=== PATIENT | male | born 1985 | race Caucasian/White ===

== ENCOUNTER 2018-05-01 08:12 | Inpatient (IN) | payer MEDICARE ==
[2018-05-01 08:51] LABS: Bilirubin Negative (Negative); Blood, Urine Negative (Negative); Clarity CLEAR (Clear); Glucose, Urine (Dipstick) >=1000 mg/dL (Negative); Leukocyte Negative (Negative); Nitrite Negative (Negative); Protein, Urine (Dipstick) Negative (Neg-Trace); Specific Gravity, Urine 1.033 (1.002-1.036); Urobilinogen 0.2 mg/dL (0.2-1.0)
[2018-05-01 09:02] LABS: #Lymphocytes 1.2 thou/uL (1.20-3.40); #Monocytes 0.4 thou/uL (0.11-0.59); #Neutrophils 6.2 thou/uL (1.40-6.50); %Eosinophils 0.3 % (0.0-10.0); %Lymphocytes 15.4 % (21.0-51.0); %Monocytes 4.7 % (0.0-10.0); %Neutrophils 79.6 % (42.0-75.0); Hemoglobin 15.6 g/dL (14.0-18.0); Mean Corpuscular HGB CONC 34.6 g/dL (32.0-36.0); Mean Corpuscular Hemoglobin 31.7 pg (27.0-31.0); Mean Corpuscular Volume 91.4 fL (78.0-98.0); Mean Platelet Volume 5.8 fL (7.4-10.4); Platelet Count 263 thou/uL (130-400); RBC Distribution Width 12.1 % (11.5-14.5); Red Blood Cell (RBC) Count 4.93 mill/uL (4.70-6.10); White Blood Cell (WBC) Count 7.8 thou/uL (4.8-10.8)
[2018-05-01] MEDS ORDERED: Ondansetron ODT 4 MG TAB ONE (09:02)
[2018-05-01 09:30] LABS: ALT (SGPT) 31 U/L (8-55); AST (SGOT) 51 U/L (5-34); Albumin 4.5 g/dL (3.5-5.0); Alkaline Phosphatase 96 U/L (40-150); Anion Gap 26 mmol/L (10-20); BUN (Urea Nitrogen) 19 mg/dL (8.9-20.6); Calc. Creatinine Clearance 0 mL/min (70-130); Calcium 9.2 mg/dL (7.8-10.44); Carbon Dioxide 18 mmol/L (22-29); Chloride 96 mmol/L (98-107); Estimated GFR-MDRD 53; Globulin 2.4 g/dL (2.4-3.5); Potassium 5.3 mmol/L (3.5-5.1); Protein, Total 6.9 g/dL (6.0-8.3); Sodium 135 mmol/L (136-145); Troponin I Less than 0.010 ng/mL (< 0.028)
[2018-05-01 09:40] LABS: CKMB 10.8 ng/mL (0-6.6); Glucose 616 mg/dL (70-105)
[2018-05-01] MEDS ORDERED: Insulin Regular 300 UNITS/3 ML VIAL ONE ×2 (09:48→09:51)
[2018-05-01 13:15] LABS: Anion Gap 22 mmol/L (10-20); BUN (Urea Nitrogen) 17 mg/dL (8.9-20.6); Calc. Creatinine Clearance 0 mL/min (70-130); Calcium 9.1 mg/dL (7.8-10.44); Carbon Dioxide 19 mmol/L (22-29); Chloride 101 mmol/L (98-107); Estimated GFR-MDRD 65; Glucose 454 mg/dL (70-105); Sodium 137 mmol/L (136-145)
[2018-05-01] MEDS ORDERED: Dextrose 5% in Water 1,000 ML IV PRN (13:29)
[2018-05-01] MEDS ORDERED: Insulin Glargine 35 UNITS in Pre-Filled Syringe 1 EACH SC SCH (13:45)
--- NOTE | 2018-05-01 15:06 | HP ---
CHIEF COMPLAINT: Nausea and vomiting. HISTORY OF PRESENT ILLNESS: The patient is a very pleasant 33-year-old male with a history of type 1 diabetes who presents to the hospital with nausea and vomiting x1 day. The patient states that he j bernice recently moved here, ran out of his Lantus for the past 2 days. Patient states that he has his s hort acting Humalog at home; however, has been taking it for the past couple of days, but when he wok e up this morning, his blood sugar was noted to be in the 400s. He tried to administer the short-act ing insulin; however, his nausea and vomiting worsened, so he came into the ER for further evaluation . The patient denies any fevers, chills, any abdominal pain, any coughs or chest pain or shortness o f breath or any URI-like symptoms. Patient states that he just moved and ran out of his medications. PAST MEDICAL HISTORY: Diabetes and patient has a history of bipolar disorder. PAST SURGICAL HISTORY: He has had an appendectomy. ALLERGIES: He has got no known drug allergies. MEDICATIONS: Lisinopril 2.5 mg daily, pravastatin 20 mg daily. He takes 35 units of Lantus in the m orning and Humalog based on his meals. He also takes risperidone 1 mg daily and Geodon 80 mg b.i.d. FAMILY HISTORY: Significant for heart disease. Father had diabetes. SOCIAL HISTORY: As mentioned. No known drug allergies. REVIEW OF SYSTEMS: All negative except for the ones mentioned above in the HPI. PHYSICAL EXAMINATION: VITAL SIGNS: He is afebrile at 98.8, 80, 16, respirations 140/60. GENERAL: He is awake, alert, oriented x3, does not appear in distress. HEENT: Normocephalic, atraumatic. NECK: No lymphadenopathy noted. LUNGS: Clear to auscultation, rhonchi or wheezes noted. CARDIOVASCULAR: S1, S2 present. No murmurs, rubs or gallops. ABDOMEN: Soft, nontender. Bowel sounds are present x2 SKIN: He has got significant amount of tattooing all over. EXTREMITIES: No edema. Pedal pulses are present x2. He has no neurological deficits noted. No foc al deficits noted. LABORATORY DATA: Are as of the following; his WBCs of 7.8, hemoglobin of 15.6, hematocrit 45.1, plat elets of 268. Chemistry initially was sodium of 135, potassium of 5.3, bicarb of 18, anion gap of 26 , creatinine 1.50, sugar was 616 with a beta hydroxybutyric 5.02. ASSESSMENT AND PLAN: The patient is a very pleasant 33-year-old male who presents to the hospital wi th nausea and vomiting. 1. Diabetic ketoacidosis. The patient ran out of his insulin. The patient was given 5 units of reg ular insulin IV in the ER and was not started on a heparin drip. He was given 2 liters of normal kimberli ine. His sugar upon my arrival was 426 and repeated BMP which indicated anion gap of 22 from 26. At this time, we will give patient 35 units of his Lantus and start him on some gentle hydration and ad ann him to the medical floor. We will continue to monitor the BMP. If his gap continues to worsen, he may be transferred to [facility] for an insulin drip. 2. Anion gap metabolic acidosis, most likely secondary from his DKA. 3. Acute kidney injury. Patient's creatinine has improved after hydration. 4. Deep venous thrombosis prophylaxis. We will put patient on subcu heparin.
[2018-05-01 15:11] VITALS: BMI 28.9
[2018-05-01] MEDS: Sodium Chloride 0.9% 1,000 ML IV SCH (16:05)
[2018-05-01] MEDS: Heparin 5,000 UNITS/ML VIAL SC SCH ×2 (16:05→21:06)
[2018-05-01] MEDS: HumaLOG 300 UNITS/3 ML VIAL SC PRN ×2 (18:11→21:07)
[2018-05-01 18:12] LABS: Anion Gap 21 mmol/L (10-20); BUN (Urea Nitrogen) 15 mg/dL (8.9-20.6); Calc. Creatinine Clearance 114 mL/min (70-130); Carbon Dioxide 20 mmol/L (22-29); Chloride 100 mmol/L (98-107); Estimated GFR-MDRD 62; Glucose 318 mg/dL (70-105); Potassium 4.9 mmol/L (3.5-5.1); Sodium 136 mmol/L (136-145)
[2018-05-01] MEDS: Acetaminophen 325 MG TAB PO PRN (18:12)
[2018-05-01] MEDS ORDERED: Famotidine/PF 20 mg/2ml Vial SLOW IVP SCH (21:00)
[2018-05-01] MEDS ORDERED: Ziprasidone 60 MG CAP PO SCH (21:00)
[2018-05-01] MEDS: Ziprasidone 20 MG CAP PO SCH (21:05)
[2018-05-01] MEDS: Pravastatin Sodium 20 MG TAB PO SCH (21:06)
[2018-05-01] MEDS: Ondansetron HCl/PF 4 MG/2 ML Vial IVP PRN (21:06)
[2018-05-01] MEDS: Famotidine 20 MG TAB PO SCH (23:11)
[2018-05-02] MEDS: Sodium Chloride 0.9% 1,000 ML IV SCH ×3 (02:23→21:38)
[2018-05-02 04:54] LABS: #Eosinphils 0.1 thou/uL (0.0-0.7); #Lymphocytes 2.4 thou/uL (1.20-3.40); #Monocytes 0.6 thou/uL (0.11-0.59); #Neutrophils 2.8 thou/uL (1.40-6.50); %Basophils 0.4 % (0.0-1.0); %Eosinophils 2.4 % (0.0-10.0); %Lymphocytes 40.9 % (21.0-51.0); %Monocytes 9.7 % (0.0-10.0); %Neutrophils 46.5 % (42.0-75.0); Hemoglobin 13.4 g/dL (14.0-18.0); Mean Corpuscular HGB CONC 33.7 g/dL (32.0-36.0); Mean Corpuscular Hemoglobin 30.8 pg (27.0-31.0); Mean Corpuscular Volume 91.3 fL (78.0-98.0); Mean Platelet Volume 5.8 fL (7.4-10.4); Platelet Count 235 thou/uL (130-400); Red Blood Cell (RBC) Count 4.36 mill/uL (4.70-6.10); White Blood Cell (WBC) Count 5.9 thou/uL (4.8-10.8)
[2018-05-02 05:11] LABS: Anion Gap 16 mmol/L (10-20); BUN (Urea Nitrogen) 11 mg/dL (8.9-20.6); Calc. Creatinine Clearance 174 mL/min (70-130); Calcium 8.7 mg/dL (7.8-10.44); Carbon Dioxide 22 mmol/L (22-29); Chloride 106 mmol/L (98-107); Estimated GFR-MDRD Greater than 90; Glucose 108 mg/dL (70-105); Potassium 3.7 mmol/L (3.5-5.1); Sodium 140 mmol/L (136-145)
[2018-05-02] MEDS: Ondansetron HCl/PF 4 MG/2 ML Vial IVP PRN ×2 (09:07→16:02)
[2018-05-02] MEDS: Heparin 5,000 UNITS/ML VIAL SC SCH ×3 (09:09→20:11)
[2018-05-02] MEDS: Famotidine 20 MG TAB PO SCH ×2 (09:09→20:11)
[2018-05-02] MEDS: risperiDONE 1 MG TAB PO SCH (09:09)
[2018-05-02] MEDS: Lisinopril 2.5 MG TAB PO SCH (09:09)
[2018-05-02] MEDS: Ziprasidone 20 MG CAP PO SCH ×2 (09:09→20:10)
[2018-05-02] MEDS: Insulin Glargine 35 UNITS in Pre-Filled Syringe 1 EACH SC SCH (09:10)
[2018-05-02] MEDS: HumaLOG 300 UNITS/3 ML VIAL SC PRN (11:36)
[2018-05-02 12:41] LABS: ALT (SGPT) 25 U/L (8-55); AST (SGOT) 23 U/L (5-34); Albumin 3.7 g/dL (3.5-5.0); Alkaline Phosphatase 82 U/L (40-150); Bilirubin, Direct 0.3 mg/dL (0.1-0.3); Bilirubin, Total 0.7 mg/dL (0.2-1.2)
--- NOTE | 2018-05-02 17:15 | PDOC.PN ---
- Objective Resuscitation Status: Resuscitation Status FULL:Full Resuscitation Vital Signs & Weight: Vital Signs (12 hours) Temp Pulse Resp BP Pulse Ox 05/02/18 15:47 98.6 F 88 16 124/74 97 05/02/18 12:01 98.3 F 83 16 108/61 92 L 05/02/18 09:10 98 F 94 15 05/02/18 09:09 94 05/02/18 07:53 98 F 94 15 118/63 93 L Weight Weight 225 lb 9.6 oz I&O: 05/01/18 05/02/18 05/03/18 06:59 06:59 06:59 Intake Total 2441 4 Output Total 400 Balance 2041 4 Result Diagrams: 05/02/18 04:37 05/02/18 04:37 Additional Labs: Accuchecks 05/02/18 05/02/18 05/02/18 16:43 10:53 05:14 POC Glucose 147 H 288 H 109 05/01/18 05/01/18 05/01/18 21:06 18:12 17:14 POC Glucose 154 H 282 H 287 H Dx/Plan - Plan * .
[2018-05-02] MEDS: Pravastatin Sodium 20 MG TAB PO SCH (20:11)
--- NOTE | 2018-05-02 21:11 | PDOC.PN ---
- Subjective Encounter Start Date: 05/02/18 Encounter Start Time: 10:30 Subjective: pt was nauseated today - Objective Resuscitation Status: Resuscitation Status FULL:Full Resuscitation Vital Signs & Weight: Vital Signs (12 hours) Temp Pulse Resp BP Pulse Ox 05/02/18 19:37 98.2 F 85 20 118/68 93 L 05/02/18 15:47 98.6 F 88 16 124/74 97 05/02/18 12:01 98.3 F 83 16 108/61 92 L Weight Weight 225 lb 9.6 oz I&O: 05/01/18 05/02/18 05/03/18 06:59 06:59 06:59 Intake Total 2441 1785 Output Total 400 1800 Balance 2040 Result Diagrams: 05/02/18 04:37 05/02/18 04:37 Additional Labs: Accuchecks 05/02/18 05/02/18 05/02/18 20:42 16:43 10:53 POC Glucose 128 H 147 H 288 H 05/02/18 05/01/18 05:14 21:06 POC Glucose 109 154 H Phys Exam - Physical Examination HEENT: PERRLA, moist MMs, sclera anicteric, TM's clear, oral pharynx no lesions , 2+ tonsils Neck: no nodes, no JVD, supple, full ROM Respiratory: no wheezing, no rales, no rhonchi, wheezing present, clear to auscultation bilateral Cardiovascular: RRR, no significant murmur, no rub, gallop, irregular Gastrointestinal: soft, non-tender, no distention, positive bowel sounds Dx/Plan (1) DKA (diabetic ketoacidoses) Code(s): E13.10 - OTH DIABETES MELLITUS WITH KETOACIDOSIS WITHOUT COMA Status : Acute (2) DM type 1 (diabetes mellitus, type 1) Status: Acute (3) Gastroparesis Code(s): K31.84 - GASTROPARESIS Status: Acute - Plan Pt's gap closed and blood sugars are good. -: pt has gastroparesis will put on regaln -: possible discharge in am * . Review of Systems - Review of Systems ENT: negative: Ear Pain, Ear Discharge, Nose Pain, Nose Discharge, Nose Congestion, Mouth Pain, Mouth Swelling, Throat Pain, Throat Swelling, Other Respiratory: negative: Cough, Dry, Shortness of Breath, Hemoptysis, SOB with Excertion, Pleuritic Pain, Sputum, Wheezing Gastrointestinal: Nausea, Vomiting Genitourinary: negative: Dysuria, Frequency, Incontinence, Hematuria, Retention , Other Musculoskeletal: negative: Neck Pain, Shoulder Pain, Arm Pain, Back Pain, Hand Pain, Leg Pain, Foot Pain, Other - Medications/Allergies Allergies/Adverse Reactions: Allergies Allergy/AdvReac Type Severity Reaction Status Date / Time No Known Drug Allergies Allergy Verified 05/01/18 15:48 onion Allergy Verified 05/01/18 16:16 Medications: Current Medications Acetaminophen (Tylenol) 650 mg PO Q4H PRN PRN Reason: Headache/Fever or Pain Last Admin: 05/01/18 18:12 Dose: 650 mg Dextrose/Water (Dextrose 50%) 25 gm SLOW IVP PRN PRN PRN Reason: Hypoglycemia Famotidine (Pepcid) 20 mg PO BID [facility] Last Admin: 05/02/18 20:11 Dose: 20 mg Glucagon (Glucagon) 1 mg IM PRN PRN PRN Reason: Hypoglycemia Heparin Sodium (Porcine) (Heparin) 5,000 units SC TID [facility] Last Admin: 05/02/18 20:11 Dose: 5,000 units Insulin Glargine 35 units/ (Miscellaneous Medication) 0.35 mls @ 0 mls/hr SC QAM [facility] Last Admin: 05/02/18 09:10 Dose: 0.35 mls Dextrose/Water (D5w) 1,000 mls @ 0 mls/hr IV .Q0M PRN; As Directed PRN Reason: Hypoglycemia Sodium Chloride (Normal Saline 0.9%) 1,000 mls @ 100 mls/hr IV .Q10H [facility] Last Admin: 05/02/18 12:28 Dose: 1,000 mls Insulin Human Lispro (Humalog) 0 units SC .MODERATE SLIDING SC PRN PRN Reason: Moderate Correctional Scale Last Admin: 05/02/18 11:36 Dose: 6 unit Lisinopril (Zestril) 2.5 mg PO DAILY [facility] Last Admin: 05/02/18 09:09 Dose: 2.5 mg Ondansetron HCl (Zofran) 4 mg IVP Q6H PRN PRN Reason: Nausea/Vomiting Last Admin: 05/02/18 16:02 Dose: 4 mg Pravastatin Sodium (Pravachol) 20 mg PO HS [facility] Last Admin: 05/02/18 20:11 Dose: 20 mg Risperidone (Risperidone) 1 mg PO DAILY [facility] Last Admin: 05/02/18 09:09 Dose: 1 mg Sodium Chloride (Flush - Normal Saline) 10 ml IVF Q12HR [facility] Last Admin: 05/02/18 09:10 Dose: 10 ml Sodium Chloride (Flush - Normal Saline) 10 ml IVF PRN PRN PRN Reason: Saline Flush Ziprasidone (Geodon) 80 mg PO BID [facility] Last Admin: 05/02/18 20:10 Dose: 80 mg
[2018-05-02] MEDS ORDERED: Metoclopramide HCl 10 MG/2 ML VIAL IVP SCH (21:30)
[2018-05-03 05:02] LABS: #Eosinphils 0.1 thou/uL (0.0-0.7); #Lymphocytes 2.1 thou/uL (1.20-3.40); #Monocytes 0.4 thou/uL (0.11-0.59); #Neutrophils 2.3 thou/uL (1.40-6.50); %Basophils 0.7 % (0.0-1.0); %Eosinophils 2.4 % (0.0-10.0); %Lymphocytes 42.4 % (21.0-51.0); %Monocytes 8.5 % (0.0-10.0); Hemoglobin 13.5 g/dL (14.0-18.0); Mean Corpuscular HGB CONC 35.1 g/dL (32.0-36.0); Mean Corpuscular Volume 91.3 fL (78.0-98.0); Mean Platelet Volume 5.4 fL (7.4-10.4); Platelet Count 210 thou/uL (130-400); RBC Distribution Width 11.9 % (11.5-14.5); Red Blood Cell (RBC) Count 4.23 mill/uL (4.70-6.10)
[2018-05-03 05:15] LABS: Anion Gap 12 mmol/L (10-20); BUN (Urea Nitrogen) 6 mg/dL (8.9-20.6); Calc. Creatinine Clearance 195 mL/min (70-130); Calcium 8.5 mg/dL (7.8-10.44); Carbon Dioxide 24 mmol/L (22-29); Chloride 108 mmol/L (98-107); Estimated GFR-MDRD Greater than 90; Glucose 93 mg/dL (70-105); Potassium 3.2 mmol/L (3.5-5.1); Sodium 141 mmol/L (136-145)
[2018-05-03] MEDS: Metoclopramide HCl 10 MG/2 ML VIAL IVP SCH ×2 (05:26→14:24)
[2018-05-03] MEDS: Sodium Chloride 0.9% 1,000 ML IV SCH ×2 (07:46→18:19)
[2018-05-03] MEDS: Heparin 5,000 UNITS/ML VIAL SC SCH ×3 (09:48→20:30)
[2018-05-03] MEDS: Famotidine 20 MG TAB PO SCH ×2 (09:48→20:30)
[2018-05-03] MEDS: risperiDONE 1 MG TAB PO SCH (09:49)
[2018-05-03] MEDS: Lisinopril 2.5 MG TAB PO SCH (09:49)
[2018-05-03] MEDS: Insulin Glargine 35 UNITS in Pre-Filled Syringe 1 EACH SC SCH (09:49)
[2018-05-03] MEDS: Ziprasidone 20 MG CAP PO SCH ×2 (09:50→20:29)
[2018-05-03] MEDS: Ondansetron HCl/PF 4 MG/2 ML Vial IVP PRN (09:50)
[2018-05-03] MEDS: HumaLOG 300 UNITS/3 ML VIAL SC PRN (12:15)
--- NOTE | 2018-05-03 17:13 | PDOC.PN ---
- Subjective Encounter Start Date: 05/03/18 Encounter Start Time: 15:00 Patient is seen today, Alert and oriented, Persistant nausea and vomiting, No respondse to Reglan. pt says he is better with phenergan. - Objective Resuscitation Status: Resuscitation Status FULL:Full Resuscitation MAR Reviewed: Yes Vital Signs & Weight: Vital Signs (12 hours) Temp Pulse Resp BP BP Pulse Ox 05/03/18 16:05 97.8 F 78 16 112/59 L 92 L 05/03/18 11:08 98.6 F 84 16 117/67 96 05/03/18 09:49 90 122/71 05/03/18 07:58 98.0 F 90 16 122/71 94 L 05/03/18 07:45 98.0 F 90 16 Weight Weight 226 lb 9.6 oz I&O: 05/02/18 05/03/18 05/04/18 06:59 06:59 06:59 Intake Total 2441 3401 630 Output Total 400 3125 300 Balance 2041 276 330 Result Diagrams: 05/03/18 04:44 05/03/18 04:44 Additional Labs: Accuchecks 05/03/18 05/02/18 11:13 20:42 POC Glucose 163 H 128 H Radiology Reviewed by me: Yes Phys Exam - Physical Examination HEENT: PERRLA, moist MMs Neck: no nodes, no JVD Respiratory: no wheezing, no rales Cardiovascular: RRR, no significant murmur Gastrointestinal: soft, non-tender Musculoskeletal: no edema, pulses present Neurological: non-focal, normal sensation Dx/Plan (1) Severe dehydration Code(s): E86.0 - DEHYDRATION Status: Acute Comment: Will continue with Iv fluids. Pt has persistant vomitings. (2) DKA (diabetic ketoacidoses) Code(s): E13.10 - OTH DIABETES MELLITUS WITH KETOACIDOSIS WITHOUT COMA Status : Resolved (3) DM type 1 (diabetes mellitus, type 1) Status: Acute Comment: Well controlled, Continue on Lantus and and SSI. (4) Gastroparesis Code(s): K31.84 - GASTROPARESIS Status: Acute Comment: Will try phenergan, as pt did not respond to Reglan. 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 Review of Systems - Review of Systems Constitutional: negative: fever, chills, sweats, weakness, malaise, other Eyes: negative: Pain, Vision Change, Conjunctivae Inflammation, Eyelid Inflammation, Redness, Other ENT: negative: Ear Pain, Ear Discharge, Nose Pain, Nose Discharge, Nose Congestion, Mouth Pain, Mouth Swelling, Throat Pain, Throat Swelling, Other Respiratory: negative: Cough, Dry, Shortness of Breath, Hemoptysis, SOB with Excertion, Pleuritic Pain, Sputum, Wheezing Cardiovascular: negative: chest pain, palpitations, orthopnea, paroxysmal nocturnal dyspnea, edema, light headedness, other Gastrointestinal: Nausea, Vomiting Genitourinary: negative: Dysuria, Frequency, Incontinence, Hematuria, Retention , Other Musculoskeletal: negative: Neck Pain, Shoulder Pain, Arm Pain, Back Pain, Hand Pain, Leg Pain, Foot Pain, Other Skin: negative: Rash, Lesions, Mario, Bruising, Other - Medications/Allergies Allergies/Adverse Reactions: Allergies Allergy/AdvReac Type Severity Reaction Status Date / Time No Known Drug Allergies Allergy Verified 05/01/18 15:48 onion Allergy Verified 05/01/18 16:16 Medications: Current Medications Acetaminophen (Tylenol) 650 mg PO Q4H PRN PRN Reason: Headache/Fever or Pain Last Admin: 05/01/18 18:12 Dose: 650 mg Dextrose/Water (Dextrose 50%) 25 gm SLOW IVP PRN PRN PRN Reason: Hypoglycemia Famotidine (Pepcid) 20 mg PO BID [facility] Last Admin: 05/03/18 09:48 Dose: 20 mg Glucagon (Glucagon) 1 mg IM PRN PRN PRN Reason: Hypoglycemia Heparin Sodium (Porcine) (Heparin) 5,000 units SC TID [facility] Last Admin: 05/03/18 14:24 Dose: 5,000 units Insulin Glargine 35 units/ (Miscellaneous Medication) 0.35 mls @ 0 mls/hr SC QAM [facility] Last Admin: 05/03/18 09:49 Dose: 0.35 mls Dextrose/Water (D5w) 1,000 mls @ 0 mls/hr IV .Q0M PRN; As Directed PRN Reason: Hypoglycemia Sodium Chloride (Normal Saline 0.9%) 1,000 mls @ 100 mls/hr IV .Q10H [facility] Last Admin: 05/03/18 07:46 Dose: 1,000 mls Insulin Human Lispro (Humalog) 0 units SC .MODERATE SLIDING SC PRN PRN Reason: Moderate Correctional Scale Last Admin: 05/03/18 12:15 Dose: 2 unit Lisinopril (Zestril) 2.5 mg PO DAILY [facility] Last Admin: 05/03/18 09:49 Dose: 2.5 mg Ondansetron HCl (Zofran) 4 mg IVP Q6H PRN PRN Reason: Nausea/Vomiting Last Admin: 05/03/18 09:50 Dose: 4 mg Pravastatin Sodium (Pravachol) 20 mg PO HS [facility] Last Admin: 05/02/18 20:11 Dose: 20 mg Promethazine HCl (Phenergan) 25 mg PO Q6H PRN PRN Reason: Nausea/Vomiting Risperidone (Risperidone) 1 mg PO DAILY [facility] Last Admin: 05/03/18 09:49 Dose: 1 mg Sodium Chloride (Flush - Normal Saline) 10 ml IVF Q12HR [facility] Last Admin: 05/03/18 09:53 Dose: 10 ml Sodium Chloride (Flush - Normal Saline) 10 ml IVF PRN PRN PRN Reason: Saline Flush Ziprasidone (Geodon) 80 mg PO BID [facility] Last Admin: 05/03/18 09:50 Dose: 80 mg
[2018-05-03] MEDS: Dextrose 50% Abboject 50 ML SYRINGE SLOW IVP PRN (18:12)
[2018-05-03] MEDS: Promethazine 25 MG TAB PO PRN (18:22)
--- NOTE | 2018-05-03 20:14 | PDOC.EVN ---
Event Note - Event Note Event Note: Notified patient reported 7/10 abdominal pain. On exam, VSS. No distress. Generally comfortable. Abdomen with modest TTP in the upper mid abdomen (below the epigastrium). No pulsatile mass, mass or bruit appreciated on exam. Will check amylase and lipase, but likely related to his recurrent vomiting and gastroparesis.
[2018-05-03] MEDS: Pravastatin Sodium 20 MG TAB PO SCH (20:29)
[2018-05-04] MEDS: Dextrose 50% Abboject 50 ML SYRINGE SLOW IVP PRN (02:02)
[2018-05-04] MEDS: Sodium Chloride 0.9% 1,000 ML IV SCH ×2 (02:02→13:14)
[2018-05-04] MEDS: Promethazine 25 MG TAB PO PRN ×2 (07:51→18:21)
[2018-05-04] MEDS: Insulin Glargine 20 UNITS in Pre-Filled Syringe 1 EACH SC SCH (10:02)
[2018-05-04] MEDS: Famotidine 20 MG TAB PO SCH ×2 (10:03→21:00)
[2018-05-04] MEDS: Lisinopril 2.5 MG TAB PO SCH (10:03)
[2018-05-04] MEDS: Heparin 5,000 UNITS/ML VIAL SC SCH ×3 (10:03→21:01)
[2018-05-04] MEDS: Ziprasidone 20 MG CAP PO SCH ×2 (10:04→21:00)
[2018-05-04] MEDS: risperiDONE 1 MG TAB PO SCH (10:04)
[2018-05-04] MEDS ORDERED: Lidocaine 2% Viscous Solution 20 ML, Aluminum & Magnesium Hydroxide 30 ML, Donnatal Eli... SSW SCH (15:15)
--- NOTE | 2018-05-04 15:20 | PDOC.PN ---
- Subjective Encounter Start Date: 05/04/18 Encounter Start Time: 11:00 Patient is seen today, alert and oriented. Still not tolerating any food, he c/ o Abdominal pain, has h/.o Smoking marijuanan.likely contributing to hyperemesis from cannabinoids. - Objective Resuscitation Status: Resuscitation Status FULL:Full Resuscitation MAR Reviewed: Yes Vital Signs & Weight: Vital Signs (12 hours) Temp Pulse Resp BP BP Pulse Ox 05/04/18 11:17 98.4 F 74 20 119/67 97 05/04/18 10:03 83 134/75 05/04/18 07:58 98.3 F 83 20 134/75 96 05/04/18 07:55 98.3 F 83 20 05/04/18 04:30 97.7 F 65 14 119/73 93 L Weight Weight 226 lb 9.6 oz I&O: 05/03/18 05/04/18 05/05/18 06:59 06:59 06:59 Intake Total 3401 3338 1082 Output Total 3125 2200 400 Balance 276 1138 682 Result Diagrams: 05/03/18 04:44 05/03/18 04:44 Additional Labs: Accuchecks 05/04/18 05/04/18 05/04/18 11:21 04:27 01:58 POC Glucose 177 H 133 H 73 05/03/18 05/03/18 05/03/18 23:05 19:22 18:05 POC Glucose 96 145 H 68 L 05/03/18 17:10 POC Glucose 66 L Radiology Reviewed by me: Yes Phys Exam - Physical Examination HEENT: PERRLA, moist MMs Neck: no nodes, no JVD Respiratory: no wheezing, no rales Cardiovascular: RRR, no significant murmur Gastrointestinal: soft, non-tender Musculoskeletal: no edema, pulses present Neurological: non-focal Dx/Plan (1) Severe dehydration Code(s): E86.0 - DEHYDRATION Status: Acute Comment: Will continue with Iv fluids. Pt has persistant vomitings. (2) DKA (diabetic ketoacidoses) Code(s): E13.10 - OTH DIABETES MELLITUS WITH KETOACIDOSIS WITHOUT COMA Status : Resolved Comment: Resolbved, Will do low dose lantus as pt is getting hypoglycemia, as he is not eating, Will continue SSI (3) DM type 1 (diabetes mellitus, type 1) Status: Acute Comment: Well controlled, Continue on Lantus and and SSI. (4) Gastroparesis Code(s): K31.84 - GASTROPARESIS Status: Acute Comment: Will try phenergan, as pt did not respond to Reglan. (5) Cannabinoid hyperemesis syndrome Code(s): F12.988 - CANNABIS USE, UNSP WITH OTHER CANNABIS-INDUCED DISORDER Status: Acute Comment: Will do Carafate and PPI. Councilled the patient to Quit smoking marijuana. - Plan cont current plan of care, out of bed/ambulate, DVT proph w/lovenox * . Review of Systems - Review of Systems Constitutional: negative: fever, chills, sweats, weakness, malaise, other Eyes: negative: Pain, Vision Change, Conjunctivae Inflammation, Eyelid Inflammation, Redness, Other ENT: negative: Ear Pain, Ear Discharge, Nose Pain, Nose Discharge, Nose Congestion, Mouth Pain, Mouth Swelling, Throat Pain, Throat Swelling, Other Respiratory: negative: Cough, Dry, Shortness of Breath, Hemoptysis, SOB with Excertion, Pleuritic Pain, Sputum, Wheezing Cardiovascular: negative: chest pain, palpitations, orthopnea, paroxysmal nocturnal dyspnea, edema, light headedness, other Gastrointestinal: negative: Nausea, Vomiting, Abdominal Pain, Diarrhea, Constipation, Melena, Hematochezia, Other Musculoskeletal: negative: Neck Pain, Shoulder Pain, Arm Pain, Back Pain, Hand Pain, Leg Pain, Foot Pain, Other - Medications/Allergies Allergies/Adverse Reactions: Allergies Allergy/AdvReac Type Severity Reaction Status Date / Time No Known Drug Allergies Allergy Verified 05/01/18 15:48 onion Allergy Verified 05/01/18 16:16 Medications: Current Medications Acetaminophen (Tylenol) 650 mg PO Q4H PRN PRN Reason: Headache/Fever or Pain Last Admin: 05/01/18 18:12 Dose: 650 mg Lidocaine HCl 20 ml/ Al Hydroxide/Mg Hydroxide 30 ml/Atropine/Hyoscyam/Phenobarb /Scopol 32.4 mg 0 ml SSW NOW [facility] Stop: 05/04/18 17:15 Dextrose/Water (Dextrose 50%) 25 gm SLOW IVP PRN PRN PRN Reason: Hypoglycemia Last Admin: 05/04/18 02:02 Dose: 25 gm Famotidine (Pepcid) 20 mg PO BID [facility] Last Admin: 05/04/18 10:03 Dose: 20 mg Glucagon (Glucagon) 1 mg IM PRN PRN PRN Reason: Hypoglycemia Heparin Sodium (Porcine) (Heparin) 5,000 units SC TID [facility] Last Admin: 05/04/18 14:47 Dose: 5,000 units Dextrose/Water (D5w) 1,000 mls @ 0 mls/hr IV .Q0M PRN; As Directed PRN Reason: Hypoglycemia Sodium Chloride (Normal Saline 0.9%) 1,000 mls @ 100 mls/hr IV .Q10H [facility] Last Admin: 05/04/18 13:14 Dose: 1,000 mls Insulin Glargine 20 units/ (Miscellaneous Medication) 0.2 mls @ 0 mls/hr SC QAM [facility] Last Admin: 05/04/18 10:02 Dose: Not Given Insulin Human Lispro (Humalog) 0 units SC .MODERATE SLIDING SC PRN PRN Reason: Moderate Correctional Scale Last Admin: 05/03/18 12:15 Dose: 2 unit Lisinopril (Zestril) 2.5 mg PO DAILY [facility] Last Admin: 05/04/18 10:03 Dose: 2.5 mg Ondansetron HCl (Zofran) 4 mg IVP Q6H PRN PRN Reason: Nausea/Vomiting Last Admin: 05/03/18 09:50 Dose: 4 mg Pantoprazole Sodium (Protonix) 40 mg IVP Q12HR [facility] Pravastatin Sodium (Pravachol) 20 mg PO HS [facility] Last Admin: 05/03/18 20:29 Dose: 20 mg Promethazine HCl (Phenergan) 25 mg PO Q6H PRN PRN Reason: Nausea/Vomiting Last Admin: 05/04/18 07:51 Dose: 25 mg Risperidone (Risperidone) 1 mg PO DAILY [facility] Last Admin: 05/04/18 10:04 Dose: 1 mg Sodium Chloride (Flush - Normal Saline) 10 ml IVF Q12HR [facility] Last Admin: 05/04/18 10:04 Dose: Not Given Sodium Chloride (Flush - Normal Saline) 10 ml IVF PRN PRN PRN Reason: Saline Flush Sucralfate (Carafate) 1 gm PO ACHS [facility] Ziprasidone (Geodon) 80 mg PO BID [facility] Last Admin: 05/04/18 10:04 Dose: 80 mg
[2018-05-04] MEDS: Sucralfate 1 GM TAB PO SCH ×2 (16:35→21:00)
[2018-05-04] MEDS: Ondansetron HCl/PF 4 MG/2 ML Vial IVP PRN (19:17)
[2018-05-04] MEDS: Pravastatin Sodium 20 MG TAB PO SCH (21:00)
[2018-05-04] MEDS: Pantoprazole 40 MG VIAL IVP SCH (21:01)
[2018-05-05] MEDS: Sodium Chloride 0.9% 1,000 ML IV SCH ×2 (00:27→08:00)
[2018-05-05] MEDS: HumaLOG 300 UNITS/3 ML VIAL SC PRN ×3 (04:52→17:20)
[2018-05-05] MEDS: Famotidine 20 MG TAB PO SCH ×2 (07:49→21:28)
[2018-05-05] MEDS: Pantoprazole 40 MG VIAL IVP SCH (07:49)
[2018-05-05] MEDS: Heparin 5,000 UNITS/ML VIAL SC SCH ×2 (07:49→14:11)
[2018-05-05] MEDS: Sucralfate 1 GM TAB PO SCH ×4 (07:49→21:28)
[2018-05-05] MEDS: Insulin Glargine 20 UNITS in Pre-Filled Syringe 1 EACH SC SCH (07:50)
[2018-05-05] MEDS: Ziprasidone 20 MG CAP PO SCH ×2 (07:50→21:28)
[2018-05-05] MEDS: Lisinopril 2.5 MG TAB PO SCH (08:00)
[2018-05-05] MEDS: Ondansetron HCl/PF 4 MG/2 ML Vial IVP PRN (08:02)
[2018-05-05] MEDS: risperiDONE 1 MG TAB PO SCH (08:15)
[2018-05-05] MEDS: Acetaminophen 325 MG TAB PO PRN (14:11)
--- NOTE | 2018-05-05 14:47 | PDOC.PN ---
- Subjective Encounter Start Date: 05/05/18 Encounter Start Time: 14:45 Subjective: f/u for DKA and DM gastroparesis with lingering nausea and emesis. -: 2 episodes of emesis today. Holding down liquids ok. No BM in 5 days. - Objective Resuscitation Status: Resuscitation Status FULL:Full Resuscitation MAR Reviewed: Yes Vital Signs & Weight: Vital Signs (12 hours) Temp Pulse Resp BP BP Pulse Ox 05/05/18 11:43 98.1 F 80 16 116/72 96 05/05/18 08:00 98.1 F 76 17 133/83 95 05/05/18 07:48 98.1 F 76 17 133/83 95 05/05/18 04:00 97.8 F 72 16 123/59 L 92 L Weight Weight 226 lb 9.6 oz I&O: 05/04/18 05/05/18 05/06/18 06:59 06:59 06:59 Intake Total 3338 1082 Output Total 2200 2100 Balance 1138 -1018 Result Diagrams: 05/03/18 04:44 05/03/18 04:44 Additional Labs: Accuchecks 05/05/18 05/05/18 05/04/18 11:45 04:54 21:13 POC Glucose 207 H 207 H 273 H 05/04/18 16:25 POC Glucose 174 H Phys Exam - Physical Examination Constitutional: NAD HEENT: PERRLA, sclera anicteric, oral pharynx no lesions Neck: no nodes, no JVD, supple, full ROM Respiratory: no wheezing, no rales, no rhonchi, clear to auscultation bilateral Cardiovascular: RRR, no significant murmur, no rub, gallop Gastrointestinal: soft, non-tender, no distention, positive bowel sounds Musculoskeletal: no edema, pulses present Neurological: non-focal, normal sensation, moves all 4 limbs Psychiatric: normal affect, A&O x 3 Skin: no rash, normal turgor, cap refill <2 seconds Dx/Plan (1) Cannabinoid hyperemesis syndrome Code(s): F12.988 - CANNABIS USE, UNSP WITH OTHER CANNABIS-INDUCED DISORDER Status: Acute Comment: Suspected, condinue Carafate and PPI. Cessation counseling. (2) DM type 1 (diabetes mellitus, type 1) Status: Chronic Comment: Continue on Lantus and and SSI. (3) Gastroparesis Code(s): K31.84 - GASTROPARESIS Status: Acute Comment: Will try phenergan, as pt did not respond to Reglan. 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
[2018-05-05] MEDS ORDERED: Sodium Chloride 0.9% 1,000 ML IV SCH (14:50)
[2018-05-05] MEDS ORDERED: Bisacodyl 10 MG SUPP PR PRN (14:50)
[2018-05-05] MEDS ORDERED: Senokot 8.6 MG TAB PO PRN (14:50)
[2018-05-05] MEDS: Pravastatin Sodium 20 MG TAB PO SCH (21:28)
[2018-05-06] MEDS: HumaLOG 300 UNITS/3 ML VIAL SC PRN (05:13)
[2018-05-06] MEDS: Famotidine 20 MG TAB PO SCH (07:47)
[2018-05-06] MEDS: risperiDONE 1 MG TAB PO SCH (07:48)
[2018-05-06] MEDS: Sucralfate 1 GM TAB PO SCH ×2 (07:48→11:59)
[2018-05-06] MEDS: Lisinopril 2.5 MG TAB PO SCH (07:50)
[2018-05-06] MEDS: Insulin Glargine 20 UNITS in Pre-Filled Syringe 1 EACH SC SCH (09:16)
[2018-05-06] MEDS ORDERED: Ondansetron ODT 4 MG TAB PO PRN (09:30)
--- NOTE | 2018-05-06 11:42 | DIS ---
DATE OF ADMISSION: 05/01/2018 DATE OF DISCHARGE: 05/06/2018 DISCHARGE DIAGNOSES: 1. Diabetic ketoacidosis, resolved. 2. Nausea and vomiting secondary to #1, improved. 3. Acute kidney injury secondary to dehydration, resolved. 4. Bipolar disorder, stable. 5. Hyperlipidemia. 6. Hypertension, stable. CONSULTATIONS: None. PERTINENT LABORATORY AND X-RAY FINDINGS: Creatinine ranged between 0.77-1.50, estimated GFR ranging between 53 to greater than 90. CBC showed a hemoglobin ranging between 13.4-15.6. Beta hydroxybutyr ate level 5.02. HOSPITAL COURSE: The patient was initially admitted to the intermediate care unit after presenting w ith diabetic ketoacidosis with associated nausea and vomiting. The patient had apparently run out of his home insulin regimen for approximately 48 hours prior to evaluation in the emergency room. The patient was placed on a DKA protocol as well as given aggressive IV fluid hydration. The patient wit h multiple metabolic derangements in conjunction with diabetic ketoacidosis, improving with fluid res uscitation and insulin therapy. The patient was noted with persistent nausea and vomiting slowly res olving by the time of discharge. The patient was noted ambulatory without assistance or difficulty a nd overall remained clinically stable after transfer to the medical floor. I have examined the patie nt at the time of discharge and discussed followup instructions, at which point the patient verbalize s understanding and agreement. The patient overall clinically stable and ready for discharge on 04/21. DISCHARGE MEDICATIONS: 1. Enteric coated aspirin 81 mg 1 tab p.o. daily. 2. Benztropine 2 mg p.o. at bedtime. 3. Citalopram 40 mg p.o. daily. 4. Doxepin 25 mg p.o. at bedtime. 5. Gabapentin 800 mg p.o. t.i.d. 6. Humalog t.i.d. with meals. 7. Glargine insulin 25 units subcutaneously b.i.d. 8. Lisinopril 2.5 mg p.o. daily. 9. Omeprazole 20 mg p.o. daily. 10. Pravachol 40 mg p.o. at bedtime. 11. Phenergan 25 mg p.o. q.6 hours p.r.n. nausea, vomiting. 12. Risperdal 1 mg p.o. daily. 13. Trazodone 150 mg p.o. at bedtime. 14. Geodon 80 mg p.o. b.i.d. FOLLOWUP: The patient may follow up and establish care with [facility] within 5-7 days of discharge. CONDITION ON DISCHARGE: Stable. ACTIVITY: ad sujit. DIET: ADA. CODE STATUS: FULL. DISPOSITION: Home on 05/06/2018.
[2018-05-06 12:05] VITALS: BP 125/82; TEMP 98
== END 2018-05-06 12:05 | disposition home or self-care (01) | DRG 638 ==
LOC: ERS 08:12 → 2SW 12:37 → OBSVTOIN 12:37 → T4-A 05-04 17:15
PROVIDERS: ADMIT Internal Medicine; ATTEND Internal Medicine
DX: E10.10 Type 1 diabetes mellitus with ketoacidosis without coma (principal); N17.9 Acute kidney failure, unspecified; F31.9 Bipolar disorder, unspecified; E10.43 Type 1 diabetes mellitus with diabetic autonomic (poly)neuropathy; F12.988 Cannabis use, unspecified with other cannabis-induced disorder; K31.84 Gastroparesis; E86.0 Dehydration; Z79.4 Long term (current) use of insulin
CPT/HCPCS: 36415; 36416; 80048; 80053; 80076; 81003; 82010; 82150; 82553; 83690; 84484; 85025; 94760; 96361; 96374; 96376; A4216; C9113; J1644; J1815; J2405; J2765; Q0162; S0028

== ENCOUNTER 2018-05-07 19:39 | Inpatient (IN) | payer MEDICARE ==
[2018-05-07] MEDS ORDERED: Ondansetron HCl/PF 4 MG/2 ML Vial ONE ×2 (20:47→23:24)
[2018-05-07 21:03] LABS: #Basophils 0.1 thou/uL (0.0-0.2); #Eosinphils 0.1 thou/uL (0.0-0.7); #Lymphocytes 2.3 thou/uL (1.20-3.40); #Monocytes 0.8 thou/uL (0.11-0.59); #Neutrophils 5.7 thou/uL (1.40-6.50); %Basophils 0.6 % (0.0-1.0); %Eosinophils 0.6 % (0.0-10.0); %Monocytes 8.9 % (0.0-10.0); %Neutrophils 63.9 % (42.0-75.0); Hemoglobin 16.5 g/dL (14.0-18.0); Mean Corpuscular HGB CONC 34.9 g/dL (32.0-36.0); Mean Corpuscular Hemoglobin 31.5 pg (27.0-31.0); Mean Corpuscular Volume 90.3 fL (78.0-98.0); Mean Platelet Volume 6.2 fL (7.4-10.4); Platelet Count 293 thou/uL (130-400); RBC Distribution Width 12.8 % (11.5-14.5); Red Blood Cell (RBC) Count 5.23 mill/uL (4.70-6.10); White Blood Cell (WBC) Count 8.9 thou/uL (4.8-10.8)
[2018-05-07 21:08] LABS: Bilirubin Small (Negative); Blood, Urine Negative (Negative); Clarity CLEAR (Clear); Glucose, Urine (Dipstick) >=1000 mg/dL (Negative); Leukocyte Negative (Negative); Nitrite Negative (Negative); Protein, Urine (Dipstick) 30 mg/dL (Neg-Trace); Specific Gravity, Urine 1.033 (1.002-1.036); Urobilinogen 0.2 mg/dL (0.2-1.0)
[2018-05-07 21:09] LABS: Bacteria/HPF None Seen HPF (None Seen); Hyaline Casts/LPF 0-3 HYALINE CAST LPF (0-3 Hyaline); Pathc Cast-AUWi Flag 0.29 (0-2.49); RBC/HPF 0-3 HPF (0-3); Squamous Epithelial None Seen HPF (0-3); WBC/HPF None Seen HPF (0-3)
[2018-05-07 21:12] LABS: ALT (SGPT) 48 U/L (8-55); AST (SGOT) 43 U/L (5-34); Alkaline Phosphatase 111 U/L (40-150); Anion Gap 29 mmol/L (10-20); BUN (Urea Nitrogen) 10 mg/dL (8.9-20.6); Bilirubin, Total 0.7 mg/dL (0.2-1.2); Calc. Creatinine Clearance 0 mL/min (70-130); Calcium 10.1 mg/dL (7.8-10.44); Carbon Dioxide 11 mmol/L (22-29); Chloride 101 mmol/L (98-107); Estimated GFR-MDRD 48; Globulin 3.1 g/dL (2.4-3.5); Glucose 387 mg/dL (70-105); Lipase 9 U/L (8-78); Potassium 4.2 mmol/L (3.5-5.1); Protein, Total 8.1 g/dL (6.0-8.3); Sodium 137 mmol/L (136-145)
[2018-05-07 21:29] LABS: CKMB 3.9 ng/mL (0-6.6); Troponin I Less than 0.010 ng/mL (< 0.028)
--- NOTE | 2018-05-07 21:30 | RAD ---
PORTABLE AP CHEST X-RAY 05/07/18 HISTORY: Nausea and vomiting. COMPARISON: None available. FINDINGS: The cardiac silhouette and pulmonary vasculature are within normal limits. The lungs are clear. [place] us structures appears intact. IMPRESSION: No acute cardiopulmonary process. POS: [facility]
[2018-05-07] MEDS ORDERED: Potassium Chloride 20 MEQ in Premix Bag 1 BAG IVPB SCH (22:45)
[2018-05-07] MEDS ORDERED: NS 0.9% w/ 20 MEQ KCL 1,000 ML IV PRN ×2 (23:58)
[2018-05-07] MEDS ORDERED: Acetaminophen 325 MG TAB PO PRN (23:58)
[2018-05-07] MEDS ORDERED: CCU Electrolyte Replacement 1 EACH IVPB SCH (23:58)
[2018-05-07] MEDS ORDERED: Sodium Chloride 0.9% 1,000 ML IV PRN ×4 (23:58)
[2018-05-07] MEDS ORDERED: Dextrose 5 %-0.45 % NaCl 1,000 ML IV PRN (23:58)
[2018-05-07] MEDS ORDERED: Ondansetron HCl/PF 4 MG/2 ML Vial IVP PRN (23:58)
[2018-05-08] MEDS ORDERED: Promethazine 25 MG TAB PO PRN (00:02)
[2018-05-08] MEDS ORDERED: Magnesium 2 GM/NS 0.9% 100 ML 2 GM in Premix Bag 1 BAG IVPB PRN (00:07)
[2018-05-08] MEDS ORDERED: Potassium Chloride 40 MEQ in Sodium Chloride 0.9% 250 ML 250 ML IVPB PRN (00:07)
[2018-05-08] MEDS ORDERED: Magnesium Oxide 400 MG TAB PO PRN ×2 (00:07)
[2018-05-08] MEDS ORDERED: Potassium Phosphate 15 MMOL in Sodium Chloride 0.9% 250 ML 250 ML IV PRN (00:07)
[2018-05-08] MEDS ORDERED: CCU ELECTROLYTE REPLACEMENT PROTOCOL FS PRN (00:07)
[2018-05-08] MEDS ORDERED: Potassium Chloride 40 MEQ in Premix Bag 1 BAG IVPB PRN (00:07)
[2018-05-08] MEDS ORDERED: Potassium Phosphate 12 MMOL in Sodium Chloride 0.9% 250 ML 250 ML IV PRN (00:07)
[2018-05-08] MEDS ORDERED: Potassium Phosphate 9 MMOL in Sodium Chloride 0.9% 100 ML IVPB PRN (00:07)
[2018-05-08] MEDS ORDERED: Potassium Chloride 20 MEQ TAB PO PRN (00:07)
[2018-05-08 01:05] VITALS: BMI 27.3
[2018-05-08 01:22] LABS: Anion Gap 28 mmol/L (10-20); BUN (Urea Nitrogen) 9 mg/dL (8.9-20.6); Calc. Creatinine Clearance 95 mL/min (70-130); Calcium 9.1 mg/dL (7.8-10.44); Chloride 108 mmol/L (98-107); Estimated GFR-MDRD 54; Glucose 298 mg/dL (70-105); Potassium 4.3 mmol/L (3.5-5.1); Sodium 140 mmol/L (136-145)
[2018-05-08 01:25] LABS: Carbon Dioxide 8 mmol/L (22-29)
[2018-05-08] MEDS: D5 1/2 NS w/20 mEq KCL 1,000 ML IV PRN ×2 (02:10→06:25)
[2018-05-08 04:02] LABS: #Basophils 0.1 thou/uL (0.0-0.2); #Lymphocytes 1.3 thou/uL (1.20-3.40); #Monocytes 0.4 thou/uL (0.11-0.59); #Neutrophils 8.2 thou/uL (1.40-6.50); %Basophils 0.6 % (0.0-1.0); %Eosinophils 0.4 % (0.0-10.0); %Lymphocytes 12.6 % (21.0-51.0); %Monocytes 4.4 % (0.0-10.0); Hemoglobin 15.8 g/dL (14.0-18.0); Mean Corpuscular HGB CONC 35.4 g/dL (32.0-36.0); Mean Corpuscular Hemoglobin 32.5 pg (27.0-31.0); Mean Corpuscular Volume 91.9 fL (78.0-98.0); Mean Platelet Volume 6.1 fL (7.4-10.4); Platelet Count 269 thou/uL (130-400); Red Blood Cell (RBC) Count 4.86 mill/uL (4.70-6.10)
[2018-05-08 04:16] LABS: Anion Gap 21 mmol/L (10-20); BUN (Urea Nitrogen) 8 mg/dL (8.9-20.6); Calc. Creatinine Clearance 112 mL/min (70-130); Calcium 8.7 mg/dL (7.8-10.44); Chloride 114 mmol/L (98-107); Estimated GFR-MDRD 65; Glucose 159 mg/dL (70-105); Potassium 4.3 mmol/L (3.5-5.1); Sodium 140 mmol/L (136-145)
[2018-05-08 04:18] LABS: Carbon Dioxide 9 mmol/L (22-29)
[2018-05-08] MEDS: Enoxaparin Sodium 40 MG/0.4 ML SYRINGE SC SCH (08:16)
[2018-05-08] MEDS: Gabapentin 400 MG CAP PO SCH ×3 (08:17→20:40)
[2018-05-08] MEDS: Citalopram 20 MG TAB PO SCH (08:17)
[2018-05-08] MEDS: risperiDONE 1 MG TAB PO SCH (08:17)
[2018-05-08] MEDS: Aspirin 81 mg Enteric Coated Tablet PO SCH (08:17)
[2018-05-08] MEDS ORDERED: Non-Formulary Item 1 EACH (Omeprazole [Omeprazole] 20 MG) PO SCH (09:00)
[2018-05-08 09:05] LABS: Anion Gap 20 mmol/L (10-20); BUN (Urea Nitrogen) 7 mg/dL (8.9-20.6); Calc. Creatinine Clearance 119 mL/min (70-130); Calcium 8.5 mg/dL (7.8-10.44); Carbon Dioxide 10 mmol/L (22-29); Chloride 112 mmol/L (98-107); Estimated GFR-MDRD 70; Glucose 162 mg/dL (70-105); Potassium 4.3 mmol/L (3.5-5.1); Sodium 138 mmol/L (136-145)
--- NOTE | 2018-05-08 09:19 | HP ---
CODE STATUS: FULL CODE. PRIMARY CARE PHYSICIAN: The patient relocated to the area. He reported he wants to go to the [facility]. TIME OF EVALUATION: 11:05 p.m. CHIEF COMPLAINT: Nausea and vomiting. HISTORY OF PRESENT ILLNESS: This is a 33-year-old male patient with past medical history of diabetes type 1. The patient was discharged yesterday for the same condition, patient went home and reported ly continued to have more nausea and more vomiting, and he reported at this time he was compliant wit h medications, no clear triggers, no alleviating factors. Symptoms were reported as moderate. REVIEW OF SYSTEMS: Constitutional: No fever or chills or generalized weakness. Respiratory: No co ugh, sputum production or shortness of breath. Cardiovascular: No chest pain, palpitation or shortn ess of breath. Gastrointestinal: The patient reported nausea and vomiting. No diarrhea or abdomina l pain. Central nervous system: No dizziness, headache or feeling lightheaded. Genitourinary: No burning with urination. Extremities: No leg swelling. All other systems were reviewed and negative except for the findings as mentioned above. PAST MEDICAL HISTORY: Diabetes type 1, daily insulin, hyperglycemia; hypertension. FAMILY HISTORY: Reported as negative. PAST SURGICAL HISTORY: History of appendectomy. PSYCHIATRIC HISTORY: Depression. SOCIAL HISTORY: No alcohol, no drugs. No smoking history. KNOWN ALLERGIES: No known drug allergies. REPORTED MEDICATIONS: Lantus, Humalog, pravastatin, lisinopril, ziprasidone, and risperidone. PHYSICAL EXAMINATION: VITAL SIGNS: On presentation, blood pressure 134/92 with heart rate 132, respiratory rate was 18, te mperature 98.3, pain was 6/10, saturation 96 on room air. GENERAL: The patient is alert, oriented, not in any acute distress. HEENT: Eyes: Normal conjunctiva. Dry oral mucosa. Eyes anicteric. NECK: No JVD. RESPIRATORY: Bilateral air entry. No rales, no wheezing. Symmetrical expansion. CARDIOVASCULAR: Normal rate, regular rhythm, no murmurs, no gallop, no edema, patient presented with sinus tachycardia. ABDOMEN: Soft, normal bowel sounds. Mildly tender in epigastric area. MUSCULOSKELETAL: Baseline range of motion and strength. No tenderness. SKIN: Warm and intact. No pallor, no rash, no redness. NEUROLOGIC: Baseline sensory, no evidence of any new focal weakness, baseline speech. Cranial nerve s seem to be intact. PSYCHIATRIC: The patient is in good mood. No anxiety, oriented, optimal judgment. LABORATORY DATA: Reviewed. The patient presented with white count 8.9, hemoglobin 16.3, MCV 90, donte telet count 293. Chemistry: Sodium 140, potassium 4.3, chloride 108, carbon dioxide was 11 on prese ntation, repeat one was 8. Anion gap was 29, BUN 10, creatinine 1.6 that was improved to 1.4. The r epeat labs GFR of 48 to 54, glucose 287. LFTs were normal. Troponin was negative. Urine was done a nd was negative. Beta hydroxybutyrate 9.95. Chest x-ray was done. There is no acute cardiopulmonar y process. ASSESSMENT AND PLAN: The patient will be placed in the hospital with the following medical problems: 1. Diabetes ketoacidosis, patient has positive beta hydroxybutyrate, metabolic acidosis with anion g ap of 8. 2. Hyperglycemia, the patient has been started on insulin drip, . We will continue with diabet ic ketoacidosis protocol for now. No other source has been identified for diabetic ketoacidosis, no evidence of infection. We will monitor for reconciliation. 3. Acute kidney injury likely secondary to dehydration from hyperglycemia. The patient presen brock with a creatinine of 1.6 and the last one on record was 0.7, we will hydrate, we will monitor, if not improving, we will need further evaluation for assistance. 4. Dehydration, caused by hyperglycemia, as mentioned above. We will hydrate. 5. Uncontrolled diabetes presenting with diabetic ketoacidosis, treatment as above. Medications ashlee l be reconciled prior to discharge and compliance. 6. Deep venous thrombosis prophylaxis. More than 35 minutes of ICU time was expanded in bedside assessment, review and evaluation of records , and coordination of care.
--- NOTE | 2018-05-08 09:40 | PDOC.PN ---
- Subjective Encounter Start Date: 05/08/18 Encounter Start Time: 09:38 Subjective: still has nausea - Objective MAR Reviewed: Yes Vital Signs & Weight: Vital Signs (12 hours) Temp Pulse Resp BP Pulse Ox 05/08/18 08:00 98.4 F 90 19 97 05/08/18 07:39 98.4 F 90 19 108/65 97 05/08/18 04:00 98.8 F 86 18 105/61 97 05/08/18 01:31 99.7 F H 108 H 18 97 05/08/18 01:10 99.7 F H 108 H 18 118/74 97 05/08/18 00:40 99.7 F H 106 H 18 132/81 98 Weight Weight 212 lb 11.2 oz I&O: 05/07/18 05/08/18 05/09/18 06:59 06:59 06:59 Intake Total 1833 500 Output Total 1000 0 Balance 833 500 Result Diagrams: 05/08/18 00:49 05/08/18 08:11 Additional Labs: Accuchecks 05/08/18 05/08/18 05/08/18 09:06 08:05 07:04 POC Glucose 156 H 135 H 113 H 05/08/18 05/08/18 05/08/18 05:51 04:58 04:18 POC Glucose 119 H 137 H 136 H 05/08/18 05/08/18 05/08/18 03:01 02:02 01:03 POC Glucose 154 H 162 H 272 H Phys Exam - Physical Examination Neck: no JVD Respiratory: clear to auscultation bilateral Cardiovascular: RRR, no significant murmur Gastrointestinal: soft, non-tender, positive bowel sounds Musculoskeletal: no edema Dx/Plan (1) Acute renal failure Status: Acute Qualifiers: Acute renal failure type: unspecified Qualified Code(s): N17.9 - Acute kidney failure, unspecified (2) Gastroparesis Code(s): K31.84 - GASTROPARESIS Status: Acute Comment: Will try phenergan, as pt did not respond to Reglan. (3) DM type 1 (diabetes mellitus, type 1) Status: Chronic Qualifiers: Diabetes mellitus complication status: with ketoacidosis Diabetes mellitus complication detail: without coma Qualified Code(s): E10.10 - Type 1 diabetes mellitus with ketoacidosis without coma Comment: Continue on Lantus and and SSI. (4) DKA (diabetic ketoacidoses) Code(s): E13.10 - OTH DIABETES MELLITUS WITH KETOACIDOSIS WITHOUT COMA Status : Resolved Qualifiers: Diabetes mellitus type: type 1 Diabetes mellitus complication detail: without coma Qualified Code(s): E10.10 - Type 1 diabetes mellitus with ketoacidosis without coma Comment: Resolved, decrease IVF's 50ml/h, continue Lantus and ISS (5) HTN (hypertension) Code(s): I10 - ESSENTIAL (PRIMARY) HYPERTENSION Status: Acute - Plan cont iv fluids, iv insulin, serial lab -: abd US -: hold ANALI/ARB -: UDS * .
--- NOTE | 2018-05-08 12:18 | ULT ---
COMPLETE ABDOMEN ULTRASOUND: INDICATIONS: Protracted nausea/vomiting. TECHNIQUE: Weaver-scale ultrasound evaluation of the liver, gallbladder, spleen, pancreas, common bile duct, kidne ys, abdominal aorta, and inferior vena cava (IVC). FINDINGS: There is increased echogenicity of the hepatic parenchyma. No acute gallbladder pathology. Thakur s ign is reported as negative by the roof assembler. The common duct is normal, measuring 3 mm in diamete r. There is an equivocal sized gallbladder wall at 3 mm. The pancreas is partially obscured from vi ew by bowel content, limiting assessment. No acute renal or splenic pathology evident. No ascites. Partial obscuration of the aorta limits assessment. IMPRESSION: 1. Borderline sized gallbladder wall. There are no overt signs to indicate acute cholecystitis. No cholelithiasis. 2. Increased echogenicity of the hepatic parenchyma, which can be seen in the setting of fatty infil tration. Recommend clinical correlation with liver function enzymes. 3. No pathologic biliary ductal dilatation is seen. POS: EVETTE
[2018-05-08] MEDS: Sodium Chloride 77 MEQ, Potassium Chloride 20 MEQ in Dextrose 10% in Water 1,000 ML IV SCH ×2 (12:22→21:44)
[2018-05-08 12:30] LABS: Amphetamine Not Detected (NotDetected); Barbiturates Screen Not Detected (NotDetected); Benzodiazepine Screen Not Detected (NotDetected); Cocaine Metabolite Screen Not Detected (NotDetected); Medtox Control Line Valid? VALID (VALID); Medtox Reader # READER 4; Methadone Not Detected (NotDetected); Methamphetamine Not Detected (NotDetected); Opiate Screen Not Detected (NotDetected); Oxycodone Screen Not Detected (NotDetected); Phencyclidine (PCP) Not Detected (NotDetected); THC/Cannabinoid Screen Detected (NotDetected); Tricyclic Screen Not Detected (NotDetected)
[2018-05-08 13:17] LABS: Anion Gap 14 mmol/L (10-20); BUN (Urea Nitrogen) 5 mg/dL (8.9-20.6); Calc. Creatinine Clearance 127 mL/min (70-130); Calcium 8.5 mg/dL (7.8-10.44); Carbon Dioxide 16 mmol/L (22-29); Chloride 108 mmol/L (98-107); Estimated GFR-MDRD 75; Glucose 196 mg/dL (70-105); Potassium 4.5 mmol/L (3.5-5.1); Sodium 133 mmol/L (136-145)
--- NOTE | 2018-05-08 13:40 | CON ---
DATE OF CONSULTATION: 05/08/2018 SERVICE: Pulmonary Medicine. REASON FOR CONSULTATION: IMCU patient. HISTORY OF PRESENT ILLNESS: The patient is a 33-year-old white male with past medical history signif icant for type 1 diabetes mellitus. He recently moved here from [place]. He previously only got put in the hospital once or twice on a yearly basis. He was in the hospital for DKA episode here re cently. He was discharged home, not feeling very well. He had increasing nausea and vomiting and re turned to the emergency department and was found to be relapsed with DKA once again. He denies any f génesis or chills. He had no dysuria or frequency. He has no hot, red, or swollen joints, arthralgias , or new rashes. There is not any purulent fluid coming from his ears or nose. He does not have any sore throat. Otherwise, he has no focalizing symptoms. PHYSICAL EXAMINATION: VITAL SIGNS: Afebrile with a T-max of 99.7, pulse 90, blood pressure 108/65, respirations 19, satura tion 97% on room air. GENERAL: The patient is awake, alert, no apparent distress. LUNGS: Excellent air entry. Minimal crackles are present in the dependent regions, but there is no rhonchi or wheezing present. No prolonged expiratory phase. HEART: Normal rate, regular. ABDOMEN: Soft, nontender, nondistended. Bowel sounds are positive. MUSCULOSKELETAL: No cyanosis or clubbing. There is no pitting in the bilateral lower extremities. NEUROLOGIC: Grossly nonfocal. PAST MEDICAL HISTORY: 1. Type 1 diabetes mellitus. 2. Hypertension. 3. Major depressive disorder. PAST SURGICAL HISTORY: Appendectomy. FAMILY HISTORY: Noncontributory. SOCIAL HISTORY: Negative for alcohol, tobacco, or illicit drug use. He has multiple tattoos. He [place] s no exposure to chemicals, dust, asbestos, or tuberculosis. As previously mentioned, he recently mo noris from [place]. ALLERGIES: No known drug allergies. MEDICATIONS: List of his inpatient and outpatient medications were reviewed. Multiple updates were made. LABORATORY DATA: WBC 10.0, hemoglobin 15.8, platelets 269,000. Creatinine 1.18, and beautifully kirk ntrending over a baseline of 0.77. Basic metabolic profile is remarkable for a bicarbonate of 10, fa iling to improve on current insulin drip; and anion gap of 20, failing to improve quickly on an insul in drip. Urinalysis is essentially unremarkable except for proteinuria, glycosuria, and ketonuria. Beta hydroxybutyric acid is 9.95. IMAGIN. Chest x-ray demonstrates no acute cardiopulmonary abnormality. 2. Ultrasound of the abdomen is currently pending. ASSESSMENT: 1. Diabetic ketoacidosis. 2. Type 1 diabetes mellitus. 3. Hypertension. 4. Acute kidney injury, resolving. DISCUSSION AND PLAN: The patient is failing to his close his gap. Primarily this is because his ins ulin drip is titrated down to 1 based on the protocol. That being said, patient's baseline insulin i s 40 units on a daily basis. As such, I will increase his insulin. We will put him on D10 half NS w azucena Kowalski. Hopefully, this will prevent hypoglycemia. We will try to get his insulin drip anywhere be tween 4 and 6. Once his gap closes and he is tolerating p.o., we can convert him back onto his home dose of 40 units of Lantus on a daily basis. Pulmonary Critical Care will continue to follow along supa arteaga the patient remains in this location.
[2018-05-08 19:13] LABS: Anion Gap 17 mmol/L (10-20); BUN (Urea Nitrogen) Less than 4 mg/dL (8.9-20.6); Calc. Creatinine Clearance 130 mL/min (70-130); Calcium 8.6 mg/dL (7.8-10.44); Carbon Dioxide 10 mmol/L (22-29); Chloride 111 mmol/L (98-107); Estimated GFR-MDRD 78; Glucose 142 mg/dL (70-105); Potassium 5.1 mmol/L (3.5-5.1); Sodium 133 mmol/L (136-145)
[2018-05-08] MEDS: Benztropine 1 MG TAB PO SCH (20:40)
[2018-05-08] MEDS: Doxepin HCl 25 MG CAP PO SCH (20:40)
[2018-05-08] MEDS: Pravastatin Sodium 40 MG TAB PO SCH (20:40)
[2018-05-08] MEDS: traZODone HCl 150 MG TAB PO SCH (20:40)
[2018-05-09 00:18] LABS: Anion Gap 13 mmol/L (10-20); BUN (Urea Nitrogen) Less than 4 mg/dL (8.9-20.6); Calc. Creatinine Clearance 155 mL/min (70-130); Calcium 8.6 mg/dL (7.8-10.44); Carbon Dioxide 17 mmol/L (22-29); Chloride 110 mmol/L (98-107); Estimated GFR-MDRD Greater than 90; Glucose 177 mg/dL (70-105); Potassium 3.5 mmol/L (3.5-5.1); Sodium 136 mmol/L (136-145)
[2018-05-09 06:23] LABS: Anion Gap 11 mmol/L (10-20); BUN (Urea Nitrogen) Less than 4 mg/dL (8.9-20.6); Calc. Creatinine Clearance 141 mL/min (70-130); Carbon Dioxide 22 mmol/L (22-29); Chloride 109 mmol/L (98-107); Estimated GFR-MDRD 85; Glucose 164 mg/dL (70-105); Potassium 3.5 mmol/L (3.5-5.1); Sodium 138 mmol/L (136-145)
[2018-05-09] MEDS: Sodium Chloride 77 MEQ, Potassium Chloride 20 MEQ in Dextrose 10% in Water 1,000 ML IV SCH (06:42)
[2018-05-09] MEDS ORDERED: Dextrose 50% Abboject 50 ML SYRINGE SLOW IVP PRN (09:27)
[2018-05-09] MEDS ORDERED: Dextrose 5% in Water 1,000 ML IV PRN (09:27)
[2018-05-09] MEDS ORDERED: HumaLOG 300 UNITS/3 ML VIAL SC PRN (09:27)
[2018-05-09] MEDS ORDERED: Potassium Chloride 20 MEQ TAB PO SCH (09:30)
[2018-05-09] MEDS ORDERED: Insulin Glargine 20 UNITS in Pre-Filled Syringe 1 EACH SC SCH (09:30)
--- NOTE | 2018-05-09 09:46 | PRG ---
DATE OF SERVICE: 05/09/2018 SERVICE: Pulmonary Medicine. SUBJECTIVE: I walked in and asked the patient if he is hungry. He was actually very happy. I asked that because he said he is starving. He denies any current chest pain, nausea, vomiting, fevers, or chills. He essentially feels back to his usual state of health. He remains on insulin drip at 2 un its per hour. There were no overnight events. PHYSICAL EXAMINATION: VITAL SIGNS: Afebrile, pulse 63, blood pressure 121/82, respirations 13, saturation 97% on room air. GENERAL: The patient is awake, alert, no apparent distress. LUNGS: Excellent air entry with no prolonged expiratory phase, wheezing, rhonchi, or crackles. HEART: Normal rate, regular. ABDOMEN: Soft, nontender, nondistended. Bowel sounds are positive. MUSCULOSKELETAL: No cyanosis or clubbing. No pitting in the bilateral lower extremities. NEUROLOGIC: Grossly nonfocal. LABORATORY DATA: WBC 10.0, hemoglobin 15.8, platelets 269,000. BUN is less than 4. Creatinine 1.00 . Basic metabolic profile is, otherwise, unremarkable with gap and bicarbonate have returned to norm al limits. Potassium is 3.5. IMAGING: Ultrasound of the abdomen demonstrates borderline-sized gallbladder wall. No overt signs, however, indicate cholecystitis is present. Increased echogenicity of the hepatic parenchyma, likely indicative of fatty infiltration. No pathologic biliary duct dilation is identified. ASSESSMENT: 1. Diabetic ketoacidosis. 2. Type 1 diabetes mellitus. 3. Hypertension. 4. Acute kidney injury, improved. PLAN: We will wean away the D10 drip. I will replace the potassium once again. The patient will be converted back to subcu insulin. He can be transitioned to the floor. If in 24 hours, he does well on his home regimen, he can be considered for discharge from the hospital. We really do not have a clear source that precipitated this event. I am not inclined to currently put him on antibiotics, as his belly discomfort has resolved.
[2018-05-09] MEDS: Aspirin 81 mg Enteric Coated Tablet PO SCH (10:17)
[2018-05-09] MEDS: Gabapentin 400 MG CAP PO SCH ×3 (10:17→20:47)
[2018-05-09] MEDS: Enoxaparin Sodium 40 MG/0.4 ML SYRINGE SC SCH (10:18)
[2018-05-09] MEDS: Citalopram 20 MG TAB PO SCH (10:18)
[2018-05-09] MEDS: risperiDONE 1 MG TAB PO SCH (10:18)
--- NOTE | 2018-05-09 11:34 | PDOC.PN ---
- Subjective Encounter Start Date: 05/09/18 Encounter Start Time: 11:32 Subjective: no nausea, eating - Objective MAR Reviewed: Yes Vital Signs & Weight: Vital Signs (12 hours) Temp Pulse Resp BP Pulse Ox 05/09/18 08:00 98.1 F 63 13 97 05/09/18 07:57 98.1 F 63 13 121/82 97 05/09/18 03:59 96.9 F L 52 L 18 108/61 95 05/08/18 23:49 97.6 F 60 18 105/65 95 Weight Admit Weight 212 lb 11.2 oz Weight 212 lb 11.2 oz I&O: 05/08/18 05/09/18 05/10/18 06:59 06:59 06:59 Intake Total 1833 3525 127 Output Total 1000 1575 Balance 833 1950 127 Result Diagrams: 05/08/18 00:49 05/09/18 05:44 Additional Labs: Accuchecks 05/09/18 05/09/18 05/09/18 10:09 09:04 08:23 POC Glucose 138 H 131 H 122 H 05/09/18 05/09/18 05/09/18 07:03 06:04 05:16 POC Glucose 123 H 133 H 157 H 05/09/18 05/09/18 05/09/18 04:24 04:17 03:01 POC Glucose 162 H 459 H 179 H 05/09/18 05/09/18 05/09/18 02:01 01:06 00:05 POC Glucose 179 H 152 H 171 H 05/08/18 05/08/18 05/08/18 23:01 22:00 21:02 POC Glucose 151 H 140 H 140 H 05/08/18 05/08/18 05/08/18 20:14 19:16 18:14 POC Glucose 134 H 107 160 H 05/08/18 05/08/18 05/08/18 17:05 16:11 15:18 POC Glucose 160 H 175 H 164 H 05/08/18 05/08/18 05/08/18 14:25 13:10 12:24 POC Glucose 170 H 175 H 187 H Phys Exam - Physical Examination Neck: no JVD Respiratory: clear to auscultation bilateral Cardiovascular: RRR, no significant murmur Gastrointestinal: soft, non-tender Musculoskeletal: no edema Dx/Plan (1) Acute renal failure Status: Resolved Qualifiers: Acute renal failure type: unspecified Qualified Code(s): N17.9 - Acute kidney failure, unspecified (2) Gastroparesis Code(s): K31.84 - GASTROPARESIS Status: Chronic Comment: Will try phenergan , as pt did not respond to Reglan. (3) DM type 1 (diabetes mellitus, type 1) Status: Chronic Qualifiers: Diabetes mellitus complication status: with ketoacidosis Diabetes mellitus complication detail: without coma Qualified Code(s): E10.10 - Type 1 diabetes mellitus with ketoacidosis without coma Comment: Continue on Lantus and and SSI. (4) HTN (hypertension) Code(s): I10 - ESSENTIAL (PRIMARY) HYPERTENSION Status: Chronic Qualifiers: Hypertension type: essential hypertension Qualified Code(s): I10 - Essential (primary) hypertension (5) Tetrahydrocannabinol (THC) use disorder, mild, abuse Code(s): F12.10 - CANNABIS ABUSE, UNCOMPLICATED Status: Acute - Plan DKA resolved, cont accu/ ss/ usual insulin doses instituted -: THC relation to hyperemesis discussed * .
[2018-05-09] MEDS: HumaLOG 300 UNITS/3 ML VIAL SC SCH ×2 (12:21→17:56)
[2018-05-09] MEDS: traZODone HCl 150 MG TAB PO SCH (20:44)
[2018-05-09] MEDS: Pravastatin Sodium 40 MG TAB PO SCH (20:46)
[2018-05-09] MEDS: Benztropine 1 MG TAB PO SCH (20:46)
[2018-05-09] MEDS: Insulin Glargine 20 UNITS in Pre-Filled Syringe 1 EACH SC SCH (20:48)
[2018-05-09] MEDS: Doxepin HCl 25 MG CAP PO SCH (20:48)
[2018-05-10 06:42] LABS: Anion Gap 15 mmol/L (10-20); BUN (Urea Nitrogen) 8 mg/dL (8.9-20.6); Calc. Creatinine Clearance 133 mL/min (70-130); Calcium 9.5 mg/dL (7.8-10.44); Carbon Dioxide 20 mmol/L (22-29); Chloride 103 mmol/L (98-107); Estimated GFR-MDRD 80; Glucose 268 mg/dL (70-105); Potassium 4.2 mmol/L (3.5-5.1); Sodium 134 mmol/L (136-145)
[2018-05-10 08:26] VITALS: BP 129/90; TEMP 97.9
[2018-05-10] MEDS: HumaLOG 300 UNITS/3 ML VIAL SC SCH ×2 (08:31→13:11)
[2018-05-10] MEDS: Insulin Glargine 20 UNITS in Pre-Filled Syringe 1 EACH SC SCH (09:54)
[2018-05-10] MEDS: Gabapentin 400 MG CAP PO SCH (09:55)
[2018-05-10] MEDS: Enoxaparin Sodium 40 MG/0.4 ML SYRINGE SC SCH (09:55)
[2018-05-10] MEDS: Citalopram 20 MG TAB PO SCH (09:55)
[2018-05-10] MEDS: risperiDONE 1 MG TAB PO SCH (09:56)
[2018-05-10] MEDS: Aspirin 81 mg Enteric Coated Tablet PO SCH (09:56)
== END 2018-05-10 14:33 | disposition home or self-care (01) | DRG 638 ==
LOC: ERS 19:39 → IMCU/EMU 05-08 00:28 → ONC 05-09 16:33
PROVIDERS: ADMIT Hospitalist; ATTEND Hospitalist
DX: E10.10 Type 1 diabetes mellitus with ketoacidosis without coma (principal); N17.9 Acute kidney failure, unspecified; E10.43 Type 1 diabetes mellitus with diabetic autonomic (poly)neuropathy; E10.65 Type 1 diabetes mellitus with hyperglycemia; K31.84 Gastroparesis; I10 Essential (primary) hypertension; F12.10 Cannabis abuse, uncomplicated; Z79.4 Long term (current) use of insulin; E78.5 Hyperlipidemia, unspecified; F32.9 Major depressive disorder, single episode, unspecified; E86.0 Dehydration
CPT/HCPCS: 36415; 36416; 71045; 76700; 80048; 80053; 80306; 81003; 81015; 82010; 82553; 83690; 84484; 85025; 96361; 96365; 96375; 96376; A4216; J1650; J1815; J2405; J3480; J7050